=== PATIENT | female | born 1985 | race Caucasian/White ===

== ENCOUNTER 2018-03-20 19:00 | Inpatient (IN) | payer OTHER, SELFPAY ==
[2018-03-20 19:07] VITALS: PULSE 86; RESP 14; O2SAT 98
--- NOTE | 2018-03-20 19:12 | ED_ITS ---
HPI - Extremity Injury (Upper) <AUDRA Silva - Last Filed: 03/20/18 22:21> General Chief Complaint: Extremity Injury, Upper Stated Complaint: ARMS SWELLING, THINKS REALTED TO EXERCISE Time Seen by Provider: 03/20/18 19:12 Source: patient Mode of arrival: ambulatory Limitations: no limitations History of Present Illness HPI narrative: 32-year-old female here for complaint of pain into her bilateral arms over the last 3 days. She states that 4 days ago she had a very hard work out of her upper body. She reports that she has had swelling and discomfort to her upper arm since this timeframe. She denies any abdominal pain. No flank pain. Positive p.o. intake. She denies any urinary symptoms. She denies having dark urine. She reports increased pain with movement of the bilateral arms. She denies any trauma to the arms other than the workout. No shortness of breath. No other concerns or complaints. Related Data Home Medications Medication Instructions Recorded Confirmed No Known Home Medications 03/20/18 03/20/18 Allergies Allergy/AdvReac Type Severity Reaction Status Date / Time Sulfa (Sulfonamide Allergy Verified 03/20/18 19:11 Antibiotics) Review of Systems <AUDRA Silva - Last Filed: 03/20/18 22:21> Review of Systems All systems reviewed & are unremarkable except as noted in HPI and below Constitutional Denies chills, Denies fever(s), Denies lethargy and Denies weakness Eyes Denies change in vision, Denies eye discharge, Denies irritation and Denies loss of vision ENT Ears, Nose, Mouth, and Throat: Denies change in voice, Denies neck pain and Denies sore throat Cardiovascular Denies chest pain, Denies irregular heart rhythm, Denies lightheadedness, Denies palpitations, Denies dyspnea, Denies dyspnea on exertion and Denies orthopnea Respiratory Denies cough, Denies dyspnea, Denies dyspnea on exertion and Denies wheezing Gastrointestinal Gastrointestinal: Denies abdominal pain, Denies change in bowel habits, Denies diarrhea, Denies nausea and Denies vomiting Genitourinary Denies hematuria, Denies flank pain, Denies urinary incontinence and Denies urinary urgency Musculoskeletal Denies neck pain Comments: Bilateral arm pain Integumentary/Breasts Denies pruritus, Denies erythema, Denies rash and Denies wounds Neurologic Denies confusion, Denies loss of vision and Denies weakness Psychiatric Denies anxiety, Denies confusion, Denies depression, Denies homicidal ideation and Denies suicidal ideation Endocrine Denies palpitations Hematologic/Lymphatic Denies easy bruising Allergic/Immunologic Denies wheezing Exam <AUDRA Silva - Last Filed: 03/20/18 22:21> Initial Vital Signs Initial Vital Signs: Vital Signs Pulse Rate 86 03/20/18 19:07 Respiratory Rate 14 03/20/18 19:07 Pulse Oximetry 98 03/20/18 19:07 Const General: cooperative and well developed Nutritional Appearance: well nourished Orientation: alert, awake, oriented x3 and not confused HENID Mouth: oral mucosae normal and moist mucous membranes Eyes Conjunctivae: conjunctivae normal Sclera: sclerae normal Pupils: PERRL EOM: EOM intact bilaterally Resp Effort & Inspection: normal respiratory effort, able to speak in complete sentences, no respiratory distress and no use of accessory muscles Auscultation: clear to auscultation bilaterally, no rales, no rhonchi and no wheezes Cardio Rate: regular rate Rhythm: regular rhythm Heart Sounds: no click, no gallops, no murmurs and no rubs Pulses: normal peripheral pulses GI Inspection: non-distended Palpation: soft, no hepatosplenomegaly, No guarding, No pulsatile mass and No tender Auscultation: normal bowel sounds General: No CVA tenderness Skin General: no rashes or lesions noted, No jaundice and No petechiae Neuro General: alert, oriented x3, gait normal and no focal motor deficits Speech: speech normal Extrem Other: Slight swelling to bilateral upper extremities around the biceps area. No ecchymosis. Do no signs of trauma. Distal sensation is intact bilaterally. Distal pulses intact bilaterally. Full range of motion. <Bing North DO - Last Filed: 03/21/18 01:29> Initial Vital Signs Initial Vital Signs: Vital Signs Pulse Rate 86 03/20/18 19:07 Respiratory Rate 14 03/20/18 19:07 Pulse Oximetry 98 03/20/18 19:07 Course <AUDRA Silva - Last Filed: 03/20/18 22:21> Orders Ordered: ED Orders 03/20/18 20:30 Complete Blood Count AUTO DIFF Stat Comprehensive Metabolic Panel Stat Creatine Kinase Stat 07/29/18 22:10 Consult to Physician Routine Acetaminophen (Tylenol) 650 mg PO Q6HR PRN PRN Reason: As Needed for Fever/Mild Pain Sodium Chloride (Normal Saline 0.9%) 1,000 mls @ 200 mls/hr IV CONT GUS Last Admin: 03/21/18 00:29 Dose: 200 mls/hr Ondansetron HCl (Zofran) 4 mg IV Q4HR PRN PRN Reason: Nausea And Vomiting Discontinued Medications Sodium Chloride (Normal Saline 0.9%) 1,000 mls @ 1,000 mls/hr IV BOLUS ONE Stop: 03/20/18 22:39 Last Infusion: 03/20/18 23:09 Dose: 1,000 mls/hr Admin: 03/20/18 22:04 Dose: 1,000 mls/hr Vital Signs - 8 hr 03/20/18 19:07 03/20/18 23:38 Temperature 98.5 F Pulse Rate 86 63 Respiratory Rate 14 16 Blood Pressure 146/72 H Pulse Oximetry 98 100 <Bing North, - Last Filed: 03/21/18 01:29> Orders Ordered: ED Orders 03/20/18 20:30 Complete Blood Count AUTO DIFF Stat Comprehensive Metabolic Panel Stat Creatine Kinase Stat 03/20/18 22:10 Consult to Physician Routine Acetaminophen (Tylenol) 650 mg PO Q6HR PRN PRN Reason: As Needed for Fever/Mild Pain Sodium Chloride (Normal Saline 0.9%) 1,000 mls @ 200 mls/hr IV CONT [facility] Last Admin: 03/21/18 00:29 Dose: 200 mls/hr Ondansetron HCl (Zofran) 4 mg IV Q4HR PRN PRN Reason: Nausea And Vomiting Discontinued Medications Sodium Chloride (Normal Saline 0.9%) 1,000 mls @ 1,000 mls/hr IV BOLUS ONE Stop: 03/20/18 22:39 Last Infusion: 03/20/18 23:09 Dose: 1,000 mls/hr Admin: 03/20/18 22:04 Dose: 1,000 mls/hr Vital Signs - 8 hr 03/20/18 19:07 03/20/18 23:38 Temperature 98.5 F Pulse Rate 86 63 Respiratory Rate 14 16 Blood Pressure 146/72 H Pulse Oximetry 98 100 MDM - Extremity Injury (Upper) <AUDRA Silva - Last Filed: 03/20/18 22:21> Lab Data Result diagrams: 03/20/18 20:30 03/20/18 20:30 Lab Results 03/20/18 03/20/18 Range/Units 20:30 20:30 WBC 7.3 (4.5-11.0) X10^3/uL RBC 4.36 (4.0-5.2) X10^6/uL Hgb 13.5 (12.0-16.0) g/dL Hct 39.9 (36-46) % MCV 91.7 (80-100) fL MCH 31.0 (26-34) PG MCHC 33.8 (30-36) % RDW 13.3 (11.6-14.8) % Plt Count 174 (150-400) X10^3/uL Neut % (Auto) 60.3 (50-75) % Lymph % (Auto) 32.1 (25-40) % [place] % (Auto) 4.7 (3-14) % Eos % (Auto) 2.1 (2-4) % Baso % (Auto) 0.8 (0-2) % Neut # (Auto) 4400 (1519-6644) /uL Sodium 139 (137-145) mmol/L Potassium 3.7 (3.4-5.1) mmol/L Chloride 103 (98-107) mmol/L Carbon Dioxide 28 (22-32) mmol/L BUN 10 (7-17) mg/dL Creatinine 0.60 (0.52-1.04) mg/dL Estimated GFR > 60.0 (>60) mL/min BUN/Creatinine Ratio 16.7 (6-22) Glucose 107 H (70-100) mg/dL Calcium 9.5 (8.4-10.2) mg/dL Total Bilirubin 0.5 (0.2-1.3) mg/dL AST 1013 H (14-36) IU/L ALT 298 H (9-52) IU/L Alkaline Phosphatase 49 (38-126) U/L Total Creatine Kinase 68854 H (30-135) U/L Total Protein 7.2 (6.3-8.2) g/dL Albumin 4.4 (3.5-5.0) g/dL Globulin 2.8 (1.7-4.1) g/dL Albumin/Globulin Ratio 1.6 (1.0-2.8) MDM Narrative Medical decision making narrative: CBC was obtained was unremarkable. Urine dip was negative for blood or urinary tract infection. Chem panel shows elevated AST and ALT. CK was elevated at 75 K indicating rhabdomyolysis. She was started with fluids in the emergency room. She is admitted for IV hydration and monitoring. Her kidney function was normal. Discussed case with Dr. Zeinab santizo hospitalist who accepted patient patient admitted inpatient [facility] <Bing North DO - Last Filed: 03/21/18 01:29> Lab Data Attestation: I reviewed the patient's lab results. Lab Results 03/20/18 03/20/18 Range/Units 20:30 20:30 WBC 7.3 (4.5-11.0) X10^3/uL RBC 4.36 (4.0-5.2) X10^6/uL Hgb 13.5 (12.0-16.0) g/dL Hct 39.9 (36-46) % MCV 91.7 (80-100) fL MCH 31.0 (26-34) PG MCHC 33.8 (30-36) % RDW 13.3 (11.6-14.8) % Plt Count 174 (150-400) X10^3/uL Neut % (Auto) 60.3 (50-75) % Lymph % (Auto) 32.1 (25-40) % [place] % (Auto) 4.7 (3-14) % Eos % (Auto) 2.1 (2-4) % Baso % (Auto) 0.8 (0-2) % Neut # (Auto) 4400 (1276-4044) /uL Sodium 139 (137-145) mmol/L Potassium 3.7 (3.4-5.1) mmol/L Chloride 103 (98-107) mmol/L Carbon Dioxide 28 (22-32) mmol/L BUN 10 (7-17) mg/dL Creatinine 0.60 (0.52-1.04) mg/dL Estimated GFR > 60.0 (>60) mL/min BUN/Creatinine Ratio 16.7 (6-22) Glucose 107 H (70-100) mg/dL Calcium 9.5 (8.4-10.2) mg/dL Total Bilirubin 0.5 (0.2-1.3) mg/dL AST 1013 H (14-36) IU/L ALT 298 H (9-52) IU/L Alkaline Phosphatase 49 (38-126) U/L Total Creatine Kinase 45998 H (30-135) U/L Total Protein 7.2 (6.3-8.2) g/dL Albumin 4.4 (3.5-5.0) g/dL Globulin 2.8 (1.7-4.1) g/dL Albumin/Globulin Ratio 1.6 (1.0-2.8) Discharge Plan Departure Patient Disposition: Admitted As Inpatient Clinical Impression: Rhabdomyolysis Discharge Date/Time: 03/20/18 22:30 Interventions: ED Discharge Assessment Last Done: 03/20/18 22:50 Admit Date/Time: 03/20/18 22:20 Admit Provider: Zeinab Santizo <Bing North DO - Last Filed: 03/21/18 01:29> Cosign ED Attending Frankyature Attestation: I was immediately available in the department for consultation. Documentation has been reviewed. I agree with assessment and plan.
[2018-03-20 20:43] LABS: Add Manual Diff / Slide Review NO; Basophils Percent Auto 0.8 % (0-2); Eosinophils Percent Auto 2.1 % (2-4); Hematocrit 39.9 % (36-46); Hemoglobin 13.5 g/dL (12.0-16.0); Lymphocytes Percent Auto 32.1 % (25-40); Mean Corpuscular HGB Conc 33.8 % (30-36); Mean Corpuscular Volume 91.7 fL (80-100); Monocytes Percent Auto 4.7 % (3-14); Neutrophils Absolute Auto 4400 /uL (3000-5900); Neutrophils Percent Auto 60.3 % (50-75); Platelet Count 174 X10^3/uL (150-400); Red Blood Cell Count 4.36 X10^6/uL (4.0-5.2); Red Cell Distribution Width 13.3 % (11.6-14.8); White Blood Cell Count 7.3 X10^3/uL (4.5-11.0)
[2018-03-20 20:54] LABS: Alanine Aminotransferase 298 IU/L (9-52); Albumin 4.4 g/dL (3.5-5.0); Albumin Globulin Ratio 1.6 (1.0-2.8); Alkaline Phosphatase 49 U/L (38-126); BUN Creatinine Ratio 16.7 (6-22); Bilirubin Total 0.5 mg/dL (0.2-1.3); Blood Urea Nitrogen 10 mg/dL (7-17); Calcium 9.5 mg/dL (8.4-10.2); Carbon Dioxide 28 mmol/L (22-32); Chloride 103 mmol/L (98-107); Estimated Glomerular Filt Rate > 60.0 mL/min (>60); Globulin 2.8 g/dL (1.7-4.1); Glucose 107 mg/dL (70-100); Potassium 3.7 mmol/L (3.4-5.1); Sodium 139 mmol/L (137-145); Total Protein 7.2 g/dL (6.3-8.2)
[2018-03-20 21:07] LABS: Aspartate Aminotransferase 1013 IU/L (14-36)
[2018-03-20 21:48] LABS: Creatine Kinase 75768 U/L (30-135); HEMOLYSIS 21 (0-50)
[2018-03-20] MEDS: SODIUM CHLORIDE 0.9% 1,000 ML 1000 ML IV (22:04)
[2018-03-20 22:35] VITALS: BMI 23.9
--- NOTE | 2018-03-20 23:36 | PC.NURSE ---
ADMISSION Received pt at approximately 2245, ambulatory with ED RN escort. A&Ox3, independent with ADLs, pleasant and cooperative with care. c/o slight pain to bilateral upper arms, denies any need for medication. 2+ edema noted, especially around biceps area. pt prefers to stay in community clothes. educated pt and significant other on rhabdomyolosis disease process, and importance of hydration and monitoring I&Os. oriented to room and call light.
[2018-03-20 23:38] VITALS: BP 146/72; PULSE 63; RESP 16; TEMP 36.9; O2SAT 100
[2018-03-21] VITALS (9 sets, daily range): BP systolic 132–150; BP diastolic 68–91; PULSE 32–74; RESP 16–20; TEMP 36.2–36.8; O2SAT 95–100
[2018-03-21] MEDS: SODIUM CHLORIDE 0.9% 1,000 ML 200 ML IV ×2 (00:29→04:09)
--- NOTE | 2018-03-21 08:57 | PM.HP.1 ---
History of Present Illness Date Patient Seen: 03/21/18 Time Patient Seen: 08:58 Chief complaint: ARMS SWELLING, THINKS REALTED TO EXERCISE Narrative: 32-year-old female presents with muscle pain and swelling in her arms. She had very rigorous work out a couple days ago with upper body doing chin ups [employer] and started having pain in her arms after that then over the week and was doing a lot of dancing and other activity at a wedding the pain seemed to worsen the swelling got worse so she finally came in here to the emergency room. She has noted some dark urine also. In the emergency room CPK level was over 75,000. She has no other systemic complaints the lower extremities are not involved and she has no significant medical history Patient History Medical History Anxiety (Acute) Surgical History History of appendectomy (Acute) Family & Social History Social History: household members significant other Prior Living Arrangements Apartment/Condo Safety & Behavioral: Feels Safe in Current Yes Environment Been Physically Hurt or No Threatened By a Person Suicidal Ideation Description None Suicide Plan Description No Plan Tobacco & Substance use: Smoking Status Never smoker alcohol intake current alcohol intake frequency holiday/special occasion Substance Use Type does not use Meds Home Medications Medication Instructions Recorded Confirmed Type No Known Home Medications 03/20/18 03/20/18 History Allergies Allergy/AdvReac Type Severity Reaction Status Date / Time Sulfa (Sulfonamide Allergy Verified 03/20/18 19:11 Antibiotics) Review of Systems Review of Systems All systems reviewed & are unremarkable except as noted in HPI and below Exam Vital Signs (past 8 hours): - 03/21/18 05:44 03/21/18 07:36 Temperature 98.0 F 97.3 F L Pulse Rate 71 68 Respiratory Rate 16 16 Blood Pressure 132/73 H 135/73 H Pulse Oximetry 100 100 Oxygen Delivery Method Room Air Oxygen Flow Rate 0 Narrative Exam Narrative: Pleasant young adult female in no acute distress HEENT exam unremarkable Oropharynx clear Lungs Clear to auscultation Heart regular rhythm Abdomen soft nontender Extremities are the upper extremities bilateral mildly swollen no significant tenderness to palpation Lower extremities no edema Skin warm and dry Neuro exam awake alert oriented speech normal no focal deficits Objective Labs Result Diagrams: 03/20/18 20:30 03/20/18 20:30 Labs: Laboratory Results - last 24 hr 03/20/18 03/20/18 20:30 20:30 WBC 7.3 RBC 4.36 Hgb 13.5 Hct 39.9 MCV 91.7 MCH 31.0 MCHC 33.8 RDW 13.3 Plt Count 174 Neut % (Auto) 60.3 Lymph % (Auto) 32.1 [place] % (Auto) 4.7 Eos % (Auto) 2.1 Baso % (Auto) 0.8 Neut # (Auto) 4400 Sodium 139 Potassium 3.7 Chloride 103 Carbon Dioxide 28 BUN 10 Creatinine 0.60 Estimated GFR > 60.0 BUN/Creatinine Ratio 16.7 Glucose 107 H Calcium 9.5 Total Bilirubin 0.5 AST 1013 H ALT 298 H Alkaline Phosphatase 49 Total Creatine Kinase 63616 H Total Protein 7.2 Albumin 4.4 Globulin 2.8 Albumin/Globulin Ratio 1.6 Assessment & Plan Plan: Assessment/Plan Narrative: One. Her acute rhabdomyolysis from excessive exercise and overuse. CPK level over 75,000. No signs of acute renal failure at this point the creatinine is normal. The patient will be admitted under observation for hydration initially she received normal saline she is now being switched to D5W with bicarbonate infusion. Plan to check CPK and electrolytes throughout the day and then reassess tomorrow morning whether not she needs further treatment. She has no other underlying medical problems and is healthy. Quality VTE Deep Vein Thrombosis/Pulmonary Embolism Present on Admission: No
[2018-03-21] MEDS: SODIUM BICARB 8.4% VIAL 100 MEQ in DEXTROSE 5% WATER 1,000 ML 150 MEQ IV ×2 (09:15→17:42)
[2018-03-21 09:38] LABS: Alanine Aminotransferase 211 IU/L (9-52); Albumin 3.2 g/dL (3.5-5.0); Albumin Globulin Ratio 1.3 (1.0-2.8); Alkaline Phosphatase 53 U/L (38-126); Aspartate Aminotransferase 582 IU/L (14-36); Bilirubin Total 0.2 mg/dL (0.2-1.3); Blood Urea Nitrogen 7 mg/dL (7-17); Calcium 8.7 mg/dL (8.4-10.2); Carbon Dioxide 26 mmol/L (22-32); Chloride 109 mmol/L (98-107); Estimated Glomerular Filt Rate > 60.0 mL/min (>60); Globulin 2.5 g/dL (1.7-4.1); Glucose 116 mg/dL (70-100); HEMOLYSIS < 15 (0-50); Potassium 4.2 mmol/L (3.4-5.1); Sodium 141 mmol/L (137-145); Total Protein 5.7 g/dL (6.3-8.2)
[2018-03-21 11:22] LABS: Creatine Kinase 38255 U/L (30-135)
--- NOTE | 2018-03-21 14:20 | CM.DANOTE ---
Patient is a 32 year old female who was admitted OBS STATUS on 03/20/18 for Arm Swelling. Pt has [employer] for insurance and her PCP is not listed. EMR was reviewed. Per MD, pt stable and observation overnight with likely d/c home tomorrow if still medically stable. Per RN, no identified concerns. SW met bedside with pt and supportive friends and explained role and pt confirmed that she is Independent and very active at baseline and no hx of medical concerns or need for HH or SNF. Pt has no concerns with d/c at this time and preference is home at discharge. Plan: SW to follow for likely pt d/c home tomorrow if medically stable. SW to follow for any further identified discharge planning needs. DOMINICK Tavera Discharge Planning/Care Management CM Discharge Assessment Start: 03/21/18 14:17 Freq: Status: Active Protocol: Document 03/21/18 14:17 BF (Rec: 03/21/18 14:20 BF [id number]) Discharge Planning Assessment Assigned Commercial Sales Director RN History Provided By Patient Friend Has Patient been admitted in last 30 No days? Is this patient on Medicare? No Is the admit diagnosis the same? Yes Prior Living Arrangements Apartment/Condo Household Members significant other Type of transporation used prior to Drives own vehicle admit Independent with ADL's Yes Is patient alert and oriented? Yes Caregiver for Another No Referrals Initiated None needed Discharge Plan Home Transportation Arrangement Supportive friends and sig other can provide transport Review Status In Process Next Review Type Discharge Review
[2018-03-21 20:14] LABS: Alanine Aminotransferase 220 IU/L (9-52); Albumin 3.8 g/dL (3.5-5.0); Albumin Globulin Ratio 1.5 (1.0-2.8); Alkaline Phosphatase 49 U/L (38-126); Aspartate Aminotransferase 541 IU/L (14-36); Bilirubin Total 0.1 mg/dL (0.2-1.3); Blood Urea Nitrogen 6 mg/dL (7-17); Calcium 9.2 mg/dL (8.4-10.2); Carbon Dioxide 30 mmol/L (22-32); Chloride 103 mmol/L (98-107); Estimated Glomerular Filt Rate > 60.0 mL/min (>60); Globulin 2.5 g/dL (1.7-4.1); Glucose 85 mg/dL (70-100); HEMOLYSIS < 15 (0-50); Potassium 4.1 mmol/L (3.4-5.1); Sodium 142 mmol/L (137-145); Total Protein 6.3 g/dL (6.3-8.2)
[2018-03-21 22:30] LABS: Creatine Kinase 31563 U/L (30-135)
[2018-03-22] VITALS: O2SAT 100
[2018-03-22] MEDS: SODIUM BICARB 8.4% VIAL 100 MEQ in DEXTROSE 5% WATER 1,000 ML 150 MEQ IV ×4 (00:46→23:44)
[2018-03-22 03:00] VITALS: BP 146/95; PULSE 74; RESP 16; TEMP 36.5; O2SAT 100
--- NOTE | 2018-03-22 04:26 | PC.NURSE ---
Jammer Hooker- IVF infusing per order to left wrist PIV. OOB indep with steady gait. Pt's Karolina Boone in stayed overnight. Pt stated mild pain to BUE. BUE elevated on pillows while in bed. Pt reports edema has diminished some. Pt otherwise asymptomatic and no other voiced concerns.
[2018-03-22 05:19] LABS: Alanine Aminotransferase 185 IU/L (9-52); Albumin 3.2 g/dL (3.5-5.0); Albumin Globulin Ratio 1.2 (1.0-2.8); Alkaline Phosphatase 38 U/L (38-126); Aspartate Aminotransferase 378 IU/L (14-36); Bilirubin Total 0.2 mg/dL (0.2-1.3); Blood Urea Nitrogen 7 mg/dL (7-17); Carbon Dioxide 30 mmol/L (22-32); Chloride 103 mmol/L (98-107); Estimated Glomerular Filt Rate > 60.0 mL/min (>60); Globulin 2.6 g/dL (1.7-4.1); Glucose 114 mg/dL (70-100); HEMOLYSIS < 15 (0-50); Potassium 3.8 mmol/L (3.4-5.1); Sodium 139 mmol/L (137-145); Total Protein 5.8 g/dL (6.3-8.2)
[2018-03-22 05:28] LABS: Creatine Kinase 24486 U/L (30-135)
[2018-03-22 08:39] VITALS: BP 142/87; PULSE 76; RESP 14; TEMP 36.6; O2SAT 100
[2018-03-22 09:44] LABS: RBC Urine None Seen (0-5/HPF); WBC Urine None Seen (0-5/HPF)
[2018-03-22 09:50] LABS: Appearance Urine UA CLEAR; Bilirubin Urine UA NEGATIVE (NEGATIVE); Color Urine UA YELLOW; Glucose Urine UA NEGATIVE (Normal); Ketones Urine UA NEGATIVE (NEGATIVE); Leukocyte Esterase Urine UA NEGATIVE (NEGATIVE); Nitrite Urine UA Negative (Negative); Occult Blood Urine UA NEGATIVE (Negative); Protein Urine UA NEGATIVE (Negative); Specific Gravity Urine UA 1.015 (1.000-1.035); Urobilinogen Urine UA 0.2 E.U./dL (0.2); pH Urine UA 7.5 (4.5-8.0)
[2018-03-22 10:10] LABS: Bacteria Urine Occasional (0-1)
[2018-03-22 10:11] LABS: Culture Indicated Urine Cult Not Indicated
[2018-03-22 12:56] VITALS: BP 148/70; PULSE 63; RESP 15; TEMP 36.7; O2SAT 100
[2018-03-22 15:36] VITALS: BP 140/82; PULSE 88; RESP 20; TEMP 36.8; O2SAT 100
[2018-03-22 17:58] LABS: Creatine Kinase 19090 U/L (30-135)
--- NOTE | 2018-03-22 18:58 | PM.PN.1 ---
Subjective Date Patient Seen: 03/22/18 Time Patient Seen: 17:58 Interval history: History of present illness Patient admitted with rhabdomyolysis secondary to extreme exercise and training. Patient's initial CK exceeded 75,000 on admission Review of systems No chest pain or shortness of breath no nausea. Patient notes the increased swelling and induration to her upper extremities are subsiding quite remarkably. Exam Vital Signs (past 8 hours): - 03/22/18 12:56 03/22/18 15:36 Temperature 98.1 F 98.2 F Pulse Rate 63 88 Respiratory Rate 15 20 Blood Pressure 148/70 H 140/82 H Pulse Oximetry 100 100 Oxygen Delivery Method Room Air Oxygen Flow Rate 0 Narrative Exam Narrative: Physical exam general appearance patient noted awake and alert in no apparent distress in good mood her fiance at bedside visiting new Psychiatric Well oriented mood is pleasant cooperative clear sensorium Cardiovascular Regular in rate and rhythm no murmurs rubs or gallops Respiratory Clear to auscultation no wheezes crackles good air flow Gastrointestinal Soft nontender positive bowel sounds no masses Neurologic No focal neurologic changes cranial nerves 2-12 grossly intact Objective Labs Result Diagrams: 03/20/18 20:30 03/22/18 04:52 Labs: Laboratory Results - last 24 hr 03/21/18 03/21/18 03/21/18 20:00 20:00 22:05 Sodium 142 Potassium 4.1 Chloride 103 Carbon Dioxide 30 BUN 6 L Creatinine 0.60 Estimated GFR > 60.0 BUN/Creatinine Ratio 10.0 Glucose 85 Calcium 9.2 Total Bilirubin 0.1 L AST 541 H ALT 220 H Alkaline Phosphatase 49 Total Creatine Kinase 49564 H Total Protein 6.3 Albumin 3.8 Globulin 2.5 Albumin/Globulin Ratio 1.5 Urine Color Yellow Urine Appearance Clear Urine pH 7.5 Ur Specific [place] 1.015 Urine Protein Negative Urine Glucose (UA) Negative Urine Ketones Negative Urine Occult Blood Negative Urine Nitrate Negative Urine Bilirubin Negative Urine Urobilinogen 0.2 Ur Leukocyte Esterase Negative Urine RBC None seen Urine WBC None seen Urine Bacteria Occasional (0-1) Ur Culture Indicated? Cult not indicated Micro UA Comment Not Reportable 03/22/18 03/22/18 03/22/18 04:52 04:52 17:25 Sodium 139 Potassium 3.8 Chloride 103 Carbon Dioxide 30 BUN 7 Creatinine 0.50 L Estimated GFR > 60.0 BUN/Creatinine Ratio 14.0 Glucose 114 H Calcium 9.0 Total Bilirubin 0.2 AST 378 H ALT 185 H Alkaline Phosphatase 38 Total Creatine Kinase 60652 H 35866 H Total Protein 5.8 L Albumin 3.2 L Globulin 2.6 Albumin/Globulin Ratio 1.2 Urine Color Urine Appearance Urine pH Ur Specific [place] Urine Protein Urine Glucose (UA) Urine Ketones Urine Occult Blood Urine Nitrate Urine Bilirubin Urine Urobilinogen Ur Leukocyte Esterase Urine RBC Urine WBC Urine Bacteria Ur Culture Indicated? Micro UA Comment Assessment & Plan Plan: Assessment/Plan Narrative: 1. Acute rhabdomyolysis from excessive exercise and overuse. CPK level over 75,000 on admission. No signs of acute renal failure at this point the creatinine is normal. Patient admitted under observation for vigorous hydration. Patient initially given normal saline but this was switched to D5W with bicarbonate infusion. Checking CPK and electrolytes daily and then reassess tomorrow morning whether not she needs further treatment. Follow-up CK today at about 5:00 p.m. notes CK about 19,000. Will continue the hydration tonight and patient is likely candidate for discharge tomorrow. Discharge planning Tentative plan to discharge tomorrow in a.m. after additional blood work in a.m.. Time Spent With Patient Time with patient: 25 - 35 minutes Quality VTE Deep Vein Thrombosis/Pulmonary Embolism Present on Admission: No
--- NOTE | 2018-03-22 19:05 | P.PN_ITS ---
Subjective Date Patient Seen: 03/22/18 Time Patient Seen: 17:58 Interval history: History of present illness Patient admitted with rhabdomyolysis secondary to extreme exercise and training. Patient's initial CK exceeded 75,000 on admission Review of systems No chest pain or shortness of breath no nausea. Patient notes the increased swelling and induration to her upper extremities are subsiding quite remarkably. Exam Vital Signs (past 8 hours): - 03/22/18 12:56 03/22/18 15:36 Temperature 98.1 F 98.2 F Pulse Rate 63 88 Respiratory Rate 15 20 Blood Pressure 148/70 H 140/82 H Pulse Oximetry 100 100 Oxygen Delivery Method Room Air Oxygen Flow Rate 0 Narrative Exam Narrative: Physical exam general appearance patient noted awake and alert in no apparent distress in good mood her fiance at bedside visiting new Psychiatric Well oriented mood is pleasant cooperative clear sensorium Cardiovascular Regular in rate and rhythm no murmurs rubs or gallops Respiratory Clear to auscultation no wheezes crackles good air flow Gastrointestinal Soft nontender positive bowel sounds no masses Neurologic No focal neurologic changes cranial nerves 2-12 grossly intact Objective Labs Result Diagrams: 03/20/18 20:30 03/22/18 04:52 Labs: Laboratory Results - last 24 hr 03/21/18 03/21/18 03/21/18 20:00 20:00 22:05 Sodium 142 Potassium 4.1 Chloride 103 Carbon Dioxide 30 BUN 6 L Creatinine 0.60 Estimated GFR > 60.0 BUN/Creatinine Ratio 10.0 Glucose 85 Calcium 9.2 Total Bilirubin 0.1 L AST 541 H ALT 220 H Alkaline Phosphatase 49 Total Creatine Kinase 13439 H Total Protein 6.3 Albumin 3.8 Globulin 2.5 Albumin/Globulin Ratio 1.5 Urine Color Yellow Urine Appearance Clear Urine pH 7.5 Ur Specific [place] 1.015 Urine Protein Negative Urine Glucose (UA) Negative Urine Ketones Negative Urine Occult Blood Negative Urine Nitrate Negative Urine Bilirubin Negative Urine Urobilinogen 0.2 Ur Leukocyte Esterase Negative Urine RBC None seen Urine WBC None seen Urine Bacteria Occasional (0-1) Ur Culture Indicated? Cult not indicated Micro UA Comment Not Reportable 03/22/18 03/22/18 03/22/18 04:52 04:52 17:25 Sodium 139 Potassium 3.8 Chloride 103 Carbon Dioxide 30 BUN 7 Creatinine 0.50 L Estimated GFR > 60.0 BUN/Creatinine Ratio 14.0 Glucose 114 H Calcium 9.0 Total Bilirubin 0.2 AST 378 H ALT 185 H Alkaline Phosphatase 38 Total Creatine Kinase 96670 H 26262 H Total Protein 5.8 L Albumin 3.2 L Globulin 2.6 Albumin/Globulin Ratio 1.2 Urine Color Urine Appearance Urine pH Ur Specific [place] Urine Protein Urine Glucose (UA) Urine Ketones Urine Occult Blood Urine Nitrate Urine Bilirubin Urine Urobilinogen Ur Leukocyte Esterase Urine RBC Urine WBC Urine Bacteria Ur Culture Indicated? Micro UA Comment Assessment & Plan Plan: Assessment/Plan Narrative: 1. Acute rhabdomyolysis from excessive exercise and overuse. CPK level over 75,000 on admission. No signs of acute renal failure at this point the creatinine is normal. Patient admitted under observation for vigorous hydration. Patient initially given normal saline but this was switched to D5W with bicarbonate infusion. Checking CPK and electrolytes daily and then reassess tomorrow morning whether not she needs further treatment. Follow-up CK today at about 5:00 p.m. notes CK about 19,000. Will continue the hydration tonight and patient is likely candidate for discharge tomorrow. Discharge planning Tentative plan to discharge tomorrow in a.m. after additional blood work in a.m.. Time Spent With Patient Time with patient: 25 - 35 minutes Quality VTE Deep Vein Thrombosis/Pulmonary Embolism Present on Admission: No
[2018-03-22 21:00] VITALS: BP 140/88; PULSE 76; RESP 18; TEMP 36.8; O2SAT 100
[2018-03-23] VITALS: O2SAT 99
[2018-03-23 00:04] VITALS: BP 137/75; PULSE 63; RESP 16; TEMP 36.5; O2SAT 99
[2018-03-23 04:38] VITALS: BP 122/76; PULSE 68; RESP 16; TEMP 36.4; O2SAT 97
[2018-03-23] MEDS: SODIUM BICARB 8.4% VIAL 100 MEQ in DEXTROSE 5% WATER 1,000 ML 150 MEQ IV (06:23)
[2018-03-23 07:26] LABS: Creatine Kinase 11597 U/L (30-135)
[2018-03-23 08:00] VITALS: BP 109/63; PULSE 64; RESP 16; TEMP 36.8; O2SAT 100
[2018-03-23 11:10] VITALS: BP 115/71; PULSE 61; RESP 16; TEMP 36.9; O2SAT 100
--- NOTE | 2018-03-23 12:09 | PM.DS.1 ---
History of Present Illness Chief complaint: ARMS SWELLING, THINKS REALTED TO EXERCISE Discharge Providers Date of admission: 03/22/18 15:35 Consults: 03/20/18 22:10 Consult to Physician Routine Comment: Consulting Provider: Zeinab Santizo Reason for consultation: admission Discharge provider: Kameron Klein MD Summary Discharge Diagnosis: Rhabdomyolysis with CK level on admission of 75,768. Hospital Course: patient was admitted to the hospital with diagnosis of rhabdomyolysis. Patient was provided D5W with 2 amps of sodium bicarb in the IV. The patient is CK level was closely monitored. In a.m. on day of discharge patient with the following lab work: CK level of 11,597, BUN of 7, creatinine of 0.5, sodium level of 139 and potassium level of 3.8. Patient was stable for discharge. Plan was discussed with the patient for follow-up. Patient to see her primary care physician in the next 1 week. Patient would benefit by a follow-up BMP to check her CK as well as her BMP. Her PCP can advise when to have the follow-up lab work. In the meantime patient to drink plenty of fluids. Patient advised to drink fluids such as Gatorade with electrolytes. Patient aware not to drink a lot of free water without the presence of the left electrolytes in the fluid. Her fiance was at bedside who also understood the plan. Status at Discharge Cognitive/behavioral status at discharge: patient is well oriented and in no apparent distress. Mood is pleasant and patient in good spirits. Functional status at discharge: independent ambulation Overall status at discharge: patient is back to baseline Time Spent with Patient Greater than 30 minutes Exam Vital Signs (past 8 hours): - 03/23/18 04:38 03/23/18 08:00 03/23/18 11:10 Temperature 97.6 F 98.3 F 98.5 F Pulse Rate 68 64 61 Respiratory Rate 16 16 16 Blood Pressure 122/76 H 109/63 115/71 Pulse Oximetry 97 100 100 Oxygen Delivery Method Room Air Oxygen Flow Rate 0 Narrative Exam Narrative: respiratory Clear to auscultation, with good airflow. No wheezing nor crackles Cardio Regular in rate and rhythm. no murmurs noted GI Soft and nontender. Good bowel sounds. Objective Labs Result Diagrams: 03/20/18 20:30 03/22/18 04:52 Labs: Laboratory Results - last 24 hr 03/22/18 03/23/18 17:25 06:52 Total Creatine Kinase 44178 H 13408 H Discharge Plan Discharge Plan Patient Disposition: Home, Self-Care Discharge comment: patient advised to drink plenty of fluids with electrolytes instead of simply free water. Follow up with PCP in next week or so and repeat BMP blood test at that time or as advised by her PCP. Provider Discharge Instructions Diet: Diet as Tolerated Activity: No exertion for next one to two weeks or until cleared by her PCP in close follow up Discharge Data Attending Provider: Kameron Klein Admit Date/Time: 03/22/18 15:35 Quality VTE Deep Vein Thrombosis/Pulmonary Embolism Present on Admission: No
--- NOTE | 2018-03-23 12:57 | PC.NURSE ---
Discharge instructions and home care handout discussed with patient and her fiance Paolo. Patient and paolo state understanding and have no further questions or concerns. Patient has called to schedule a follow up appt. with her PCP already. IV dc'd intact. Patient escorted out with [employer] with all belongings requested to walk out, tolerating well. Patient instructed to seek emergent care if symptoms return or worsen.
--- NOTE | 2018-03-23 13:58 | CM.DPC ---
DCP: case received and discussed in [facility] team rounds. Dr. Klein confirmed that he did speak last night with pt and discussed plan for home today if labs were good. He says pt was very agreeable to same. She did go home today as planned, to [place], with toña Boone transporting her. CAMMY Villegas reported no concerns re the d/c today were expressed.
== END 2018-03-23 12:59 | disposition home or self-care (01) | DRG 566 ==
LOC: ED 22:02 → AC 22:22
PROVIDERS: Internal Medicine; Admitting Provider Internal Medicine; Emergency Provider Nurse Practitioner Family; Visit Provider Internal Medicine
DX: T79.6XXA Traumatic ischemia of muscle, initial encounter (principal); X50.0XXA Overexertion from strenuous movement or load, initial encounter; X50.9XXA Other and unspecified overexertion or strenuous movements or postures, initial encounter
CPT/HCPCS: 36415; 80053; 81001; 81003; 81025; 82550; 85025; 96360; 99281; 99283; G0378